=== PATIENT | female | born 1990 | race American Indian/Alaskan Native ===

== ENCOUNTER 2018-01-17 11:57 | Emergency (ER) | payer MEDICAID ==
[2018-01-17 12:18] VITALS: BP 125/60
[2018-01-17] MEDS ORDERED: ZOFRAN ODT PO ONE (15:00)
[2018-01-17] MEDS ORDERED: TYLENOL PO ONE (15:01)
[2018-01-17 15:20] LABS: Basophils % (Auto) 0.5 % (0.0-1.8); Eosinophils # (Auto) 0.1 K/mm3 (0.0-0.4); Eosinophils % (Auto) 1.1 % (0.0-4.3); Lymphocytes # (Auto) 1.4 K/mm3 (1.2-5.4); Lymphocytes % (Auto) 29.9 % (13.4-35.0); Monocytes # (Auto) 0.5 K/mm3 (0.0-0.8); Monocytes % (Auto) 10.2 % (0.0-7.3)
[2018-01-17 15:43] LABS: Bilirubin,Urine NEG (Negative); Blood,Urine NEG (Negative); Color,Urine Yellow (Yellow); Mucus,Urine 3+ /HPF; Urobilinogen,Urine < 2.0 mg/dL (<2.0)
[2018-01-17 15:45] LABS: WBC,Urine > 182.0 /HPF (0.0-6.0)
[2018-01-17 15:46] LABS: HCG Qualitative,Urine Positive (Negative)
[2018-01-17 15:49] LABS: Alanine Aminotransferase 6 units/L (7-56); Albumin 3.2 g/dL (3.9-5); BUN/Creatinine Ratio 8; Blood Urea Nitrogen 4 mg/dL (7-17); Calcium 8.4 mg/dL (8.4-10.2); Hemolysis Index 4; Lipase 16 units/L (13-60)
[2018-01-17] MEDS ORDERED: XYLOCAINE 1% MPF 5 mL INFILTRATI ONE (16:25)
[2018-01-17] MEDS ORDERED: ROCEPHIN IM STA (16:25)
--- NOTE | 2018-01-17 16:25 | Emergency Department Report ---
ED Abdominal Pain HPI - General Chief Complaint: Abdominal Pain Stated Complaint: ABDOMINAL PAIN Time Seen by Provider: 01/17/18 14:50 Source: patient, family Mode of arrival: Ambulatory Limitations: No Limitations - History of Present Illness Initial Comments: She reports abdominal pain 06/15 and it's located to her pelvic area. She reports that she has nausea with vomiting. This has been going on for 1 week. Denies any constipation or diarrhea. Denies any vaginal discharge. She reports irregular menses and said that she has irregular menses from time to time but the feeling is that she has now are the same feeling that she had when she was before. It is documented in triage note the patient said she was having irregular spotting the patient says that she did not say that she said that she was having irregular periods. Reports urinary burning but denies frequency or urgency. Vomited times one yesterday and she is able to tolerate liquids. Denies any fever or chills. No medication taken for pain. Patient does not have FUEL VERIFICATION TECHNICIAN. She reports some lower back pain. Denies any concern for STDs. Pain is crampy and it comes and goes nothing makes it better and nothing makes it worse. MD Complaint: abdominal pain Onset/Timin -: week(s) Location: suprapubic Radiation: none Migration to: no migration Severity: severe Severity scale (0 -10): 10 Quality: cramping Consistency: intermittent Improves With: nothing Worsens With: nothing Context: other (suspect ) Associated Symptoms: nausea, vomiting, dysuria. denies: diarrhea, fever, chills , constipation, hematemesis, hematochezia, melena, hematuria, anorexia, syncope Treatments Prior to Arrival: other (none) - Related Data LMP Date: 11/18/17 Previous Rx's Medication Instructions Recorded Last Taken Type Famotidine [Pepcid] 10 mg PO BID #60 tablet 12/24/13 Unknown Rx Omeprazole [PriLOSEC] 20 mg PO QDAY #30 capsule. 12/24/13 Unknown Rx Acetamin/Codeine 120-12Mg/5 ml 5 ml PO TID PRN #30 ml 11/09/14 Unknown Rx [Tylenol/Codeine] Cetirizine HCl [Allergy Relief] 10 mg PO DAILY #30 tablet 11/09/14 Unknown Rx Fluticasone Propionate [Flonase] 100 mcg NS QDAY #1 spray.susp 11/09/14 Unknown Rx Ibuprofen [Motrin] 800 mg PO Q8H PRN #60 tablet 11/09/14 Unknown Rx Famotidine [Pepcid] 20 mg PO BID #40 tablet 12/13/14 Unknown Rx Pnv with Ca,No.71/Iron/FA 1 each PO DAILY #90 tablet 12/13/14 Unknown Rx [ Vitamin Tablet] Promethazine [Phenergan] 25 mg PO Q6H PRN #20 tablet 12/13/14 Unknown Rx Acetaminophen/Codeine [Tylenol #3] 1 tab PO Q6H PRN #14 tab 01/12/15 Unknown Rx Ibuprofen [Motrin 800 MG tab] 800 mg PO TID PRN #30 tablet 07/27/15 Unknown Rx oxyCODONE /ACETAMINOPHEN [Percocet 1 tab PO Q4HR #30 tablet 07/27/15 Unknown Rx 5/325 mg] Cephalexin [Keflex] 500 mg PO Q8HR 7 Days #21 cap 01/17/18 Unknown Rx Metoclopramide [Reglan] 10 mg PO Q8H PRN #12 tab 01/17/18 Unknown Rx Vit No.130/Iron/Folic 1 each PO Q6H 30 Days #30 tablet 01/17/18 Unknown Rx [ Tablet] Allergies Allergy/AdvReac Type Severity Reaction Status Date / Time sulfamethoxazole Allergy Hives Verified 07/25/15 13:34 [From Bactrim] trimethoprim [From Bactrim] Allergy Hives Verified 07/25/15 13:34 ED Review of Systems ROS: Stated complaint: ABDOMINAL PAIN Other details as noted in HPI Constitutional: denies: chills, fever, weakness ENT: denies: throat pain, congestion Respiratory: denies: cough, orthopnea, shortness of breath, SOB with exertion, SOB at rest, stridor, wheezing Cardiovascular: denies: chest pain, palpitations, dyspnea on exertion, edema, syncope, paroxysmal nocturnal dyspnea Endocrine: denies: increased hunger, increased thirst, increased urine Gastrointestinal: abdominal pain, nausea, vomiting. denies: diarrhea, constipation, hematemesis, melena, hematochezia Genitourinary: dysuria, abnormal menses. denies: urgency, frequency, hematuria , discharge, dyspareunia Musculoskeletal: denies: back pain, joint swelling, arthralgia Skin: denies: rash, lesions Neurological: denies: headache, weakness, numbness, paresthesias, confusion, abnormal gait, vertigo ED Past Medical Hx - Past Medical History Previous Medical History?: Yes Hx Hypertension: No Hx Heart Attack/AMI: No Hx Congestive Heart Failure: No Hx Diabetes: No Hx Deep Vein Thrombosis: No Hx Renal Disease: No Hx Sickle Cell Disease: No Hx Headaches / Migraines: Yes Hx Seizures: No Hx Asthma: (mild intermittent) Hx COPD: No Hx HIV: No Additional medical history: BRONCHITIS - Surgical History Past Surgical History?: Yes Hx Cholecystectomy: Yes Additional Surgical History: A0 - Family History Family history: hypertension - Social History Smoking Status: Former Smoker Substance Use Type: Alcohol Other Social History: Single and lives with family - Medications Home Medications: Home Medications Medication Instructions Recorded Confirmed Last Taken Type Famotidine [Pepcid] 10 mg PO BID #60 tablet 12/24/13 07/28/15 Unknown Rx Omeprazole [PriLOSEC] 20 mg PO QDAY #30 capsule. 12/24/13 07/28/15 Unknown Rx Acetamin/Codeine 120-12Mg/5 ml 5 ml PO TID PRN #30 ml 11/09/14 07/28/15 Unknown Rx [Tylenol/Codeine] Cetirizine HCl [Allergy Relief] 10 mg PO DAILY #30 tablet 11/09/14 07/28/15 Unknown Rx Fluticasone Propionate [Flonase] 100 mcg NS QDAY #1 spray.susp 11/09/14 Unknown Rx Ibuprofen [Motrin] 800 mg PO Q8H PRN #60 tablet 11/09/14 07/28/15 Unknown Rx Famotidine [Pepcid] 20 mg PO BID #40 tablet 12/13/14 07/28/15 Unknown Rx Pnv with Ca,No.71/Iron/FA 1 each PO DAILY #90 tablet 12/13/14 07/28/15 Unknown Rx [ Vitamin Tablet] Promethazine [Phenergan] 25 mg PO Q6H PRN #20 tablet 12/13/14 07/28/15 Unknown Rx Acetaminophen/Codeine [Tylenol #3] 1 tab PO Q6H PRN #14 tab 01/12/15 07/28/15 Unknown Rx Ibuprofen [Motrin 800 MG tab] 800 mg PO TID PRN #30 tablet 07/27/15 Unknown Rx oxyCODONE /ACETAMINOPHEN [Percocet 1 tab PO Q4HR #30 tablet 07/27/15 Unknown Rx 5/325 mg] Cephalexin [Keflex] 500 mg PO Q8HR 7 Days #21 cap 01/17/18 Unknown Rx Metoclopramide [Reglan] 10 mg PO Q8H PRN #12 tab 01/17/18 Unknown Rx Vit No.130/Iron/Folic 1 each PO Q6H 30 Days #30 tablet 01/17/18 Unknown Rx [ Tablet] ED Physical Exam - General Limitations: No Limitations General appearance: alert, in no apparent distress - Head Head exam: Present: atraumatic, normocephalic, normal inspection - Eye Eye exam: Present: normal appearance, PERRL, EOMI Pupils: Present: normal accommodation - ENT ENT exam: Present: normal exam, normal orophraynx, mucous membranes moist, TM's normal bilaterally, normal external ear exam - Neck Neck exam: Present: normal inspection, full ROM, other (no C-spine tenderness). Absent: tenderness, lymphadenopathy - Respiratory Respiratory exam: Present: normal lung sounds bilaterally. Absent: respiratory distress, wheezes, rales, rhonchi, stridor, chest wall tenderness, accessory muscle use, decreased breath sounds, prolonged expiratory - Cardiovascular Cardiovascular Exam: Present: regular rate, normal rhythm, normal heart sounds. Absent: systolic murmur, diastolic murmur, rubs, gallop - GI/Abdominal GI/Abdominal exam: Present: soft, normal bowel sounds. Absent: distended, tenderness, guarding, rebound, rigid, organomegaly, mass, bruit, pulsatile mass , hernia - Extremities Exam Extremities exam: Present: normal inspection, full ROM, normal capillary refill , other (no clubbing, cyanosis or edema. +2 pulses full extremities). Absent: tenderness, pedal edema, joint swelling, calf tenderness - Back Exam Back exam: Present: normal inspection, full ROM, other (relates that any difficulties). Absent: tenderness, CVA tenderness (R), CVA tenderness (L), muscle spasm, paraspinal tenderness, vertebral tenderness, rash noted - Neurological Exam Neurological exam: Present: alert, oriented X3, reflexes normal. Absent: motor sensory deficit - Psychiatric Psychiatric exam: Present: normal affect, normal mood - Skin Skin exam: Present: warm, dry, intact, normal color. Absent: rash ED Course Vital Signs 01/17/18 12:14 Temperature 98.8 F Pulse Rate 65 Respiratory 20 Rate Blood Pressure 125/60 O2 Sat by Pulse 100 Oximetry - Reevaluation(s) Reevaluation #1: 01/17/18 16:[address] Boyle and appropriate orders placed. Patient received Tylenol 650 mg for abdominal pain. Patient reports that she was not having any vaginal spotting as reported on her triage paperwork she says she missed her period and she has a history of irregular period and she told them that she was having irregular. Not spotting. She said she came because she suspected that she was because this is the same thing that happened when she had her first child. She has a urinary tract infection and tolerated by mouth fluid well. Patient was given Zofran [address] Boyle. She is also given Rocephin 1 g IM for UTI. Urine culture sent. Abdomen is nontender to palpate. Patient and is saying that she is approximately 4 weeks based on her last period and I discussed with her that an ultrasound might because is still early. Patient does have FUEL VERIFICATION TECHNICIAN that she can follow- up with. Awaiting ultrasound and hormone Reevaluation #2: 01/17/18 18:51 Patient is stable, she is not experiencing any abdominal pain at present. Denies any nausea. Tolerating fluid well. Still awaiting in ultrasound ED Medical Decision Making - Lab Data Result diagrams: 01/17/18 15:04 01/17/18 15:04 Lab Results 01/17/18 01/17/18 01/17/18 Range/Units 15:04 15:04 15:10 WBC 4.8 (4.5-11.0) K/mm3 RBC 3.60 L (3.65-5.03) M/mm3 Hgb 10.3 (10.1-14.3) gm/dl Hct 30.2 L (30.3-42.9) % MCV 84 (79-97) fl MCH 29 (28-32) pg MCHC 34 (30-34) % RDW 17.0 H (13.2-15.2) % Plt Count 251 (140-440) K/mm3 Lymph % (Auto) 29.9 (13.4-35.0) % [place] % (Auto) 10.2 H (0.0-7.3) % Eos % (Auto) 1.1 (0.0-4.3) % Baso % (Auto) 0.5 (0.0-1.8) % Lymph # 1.4 (1.2-5.4) K/mm3 [place] # 0.5 (0.0-0.8) K/mm3 Eos # 0.1 (0.0-0.4) K/mm3 Baso # 0.0 (0.0-0.1) K/mm3 Seg Neutrophils % 58.3 (40.0-70.0) % Seg Neutrophils # 2.8 (1.8-7.7) K/mm3 Sodium 136 L (137-145) mmol/L Potassium 4.0 (3.6-5.0) mmol/L Chloride 100.1 (98-107) mmol/L Carbon Dioxide 24 (22-30) mmol/L Anion Gap 16 mmol/L BUN 4 L (7-17) mg/dL Creatinine 0.5 L (0.7-1.2) mg/dL Estimated GFR > 60 ml/min BUN/Creatinine Ratio 8 % Glucose 81 (65-100) mg/dL Calcium 8.4 (8.4-10.2) mg/dL Total Bilirubin 0.50 (0.1-1.2) mg/dL AST 10 (5-40) units/L ALT 6 L (7-56) units/L Alkaline Phosphatase 57 (35-129) units/L Total Protein 6.2 L (6.3-8.2) g/dL Albumin 3.2 L (3.9-5) g/dL Albumin/Globulin Ratio 1.1 % Lipase 16 (13-60) units/L Urine Color Yellow (Yellow) Urine Turbidity Hazy (Clear) Urine pH 5.0 (5.0-7.0) Ur Specific [place] 1.020 (1.003-1.030) Urine Protein 30 mg/dl (Negative) mg/dL Urine Glucose (UA) Neg (Negative) mg/dL Urine Ketones Neg (Negative) mg/dL Urine Blood Neg (Negative) Urine Nitrite Neg (Negative) Urine Bilirubin Neg (Negative) Urine Urobilinogen < 2.0 (<2.0) mg/dL Ur Leukocyte Esterase Lg (Negative) Urine WBC (Auto) > 182.0 H (0.0-6.0) /HPF Urine RBC (Auto) 11.0 (0.0-6.0) /HPF U Epithel Cells (Auto) 12.0 (0-13.0) /HPF Urine Mucus 3+ /HPF Urine HCG, Qual Positive A (Negative) Urine culture sent - Radiology Data Radiology results: report reviewed ON transvaginal/Transabdominal place pt at 8 weeks and 6 days hestation. Small subchorionic hemorrage. FHR 177 beats per minute. Both ovaries or normal and no adnexal masses identified. Estimated date of delivery is 08/23/2018. - Medical Decision Making ED course: Patient here complaining of pelvic pain that slid on off, nausea and vomiting the sit on and off 1 week. She reports irregular menses and denies any vaginal discharge or bleeding. CBC and chemistries stable and urinalysis SHOWS patient has urinary tract infection. Urine culture sent. Patient was given Zofran [address] Boyle. She WAS also given Rocephin 1 g IM for UTI. Urine culture sent. Abdomen is nontender to palpate. Patient and is saying that she is Ultrasound transabdominal abdominal OB and OB transvaginal place patient at 8 weeks 6 days with single live intrauterine . Small subchorionic hemorrhage. Both ovaries are normal. heart tone is 176 bpm. Please refer to laboratory section and also radiology section for details on reports. Lab report and ultrasound discussed the patient. I also discussed diagnosis of urinary tract infection, abdominal pain and , nausea and vomiting in and she voiced understanding. Patient discharged from ED to follow up with Dr. Tai Uribe in 2-3 days and if she cannot get and with Dr. Tai Uribe she can call [facility] OB clinic to schedule an appointment. She was understanding of diagnosis and discharge plan and discharged home with her family in stable condition with prescription for vitamin, Keflex and Reglan. Critical care attestation.: If time is entered above; I have spent that time in minutes in the direct care of this critically ill patient, excluding procedure time. ED Disposition Clinical Impression: Nausea and vomiting during UTI (urinary tract infection) during Qualifiers: Trimester: first trimester Qualified Code(s): O23.41 - Unspecified infection of urinary tract in , first trimester Abdominal pain during Qualifiers: Trimester: first trimester Qualified Code(s): O26.891 - Other specified related conditions, first trimester Qualifiers: Weeks of gestation: 8 weeks Qualified Code(s): Z3A.08 - 8 weeks gestation of Disposition: DC-01 TO HOME OR SELFCARE Is pt being admited?: No Does the pt Need Aspirin: No Condition: Stable Instructions: Vitamins (By mouth), (ED), Urinary Tract Infection in Women (ED), Acute Nausea and Vomiting (ED), Dysuria (ED), Abdominal Pain (ED) Additional Instructions: Please increase her fluid intake as instructed. Follow-up with Dr. Uribe who is FUEL VERIFICATION TECHNICIAN manager construction for today. See referral in discharge instruction paperwork. Take vitamin as instructed Take Keflex for urinary tract infection If you develop vaginal bleeding, discharge, nausea and vomiting that started relieved by medication, returning abdominal pain, please return to the emergency room [facility] otherwise follow-up with FUEL VERIFICATION TECHNICIAN. Call FUEL VERIFICATION TECHNICIAN tomorrow to schedule an appointment Prescriptions: Cephalexin [Keflex] 500 mg PO Q8HR 7 Days #21 cap Metoclopramide [Reglan] 10 mg PO Q8H PRN #12 tab PRN Reason: Nausea And Vomiting Vit No.130/Iron/Folic [ Tablet] 1 each PO Q6H 30 Days #30 tablet Referrals: ANA URIBE MD [Staff Physician] - 2-3 Days [facility] [Outside] - 2-3 Days Forms: Accompanied Note, Work/School Release Form(ED)
[2018-01-17 16:29] LABS: Hematocrit 30.2 % (30.3-42.9); Hemoglobin 10.3 gm/dl (10.1-14.3); Mean Corpuscular HGB Conc 34 % (30-34); Mean Corpuscular Hemoglobin 29 pg (28-32); Mean Corpuscular Volume 84 fl (79-97); Platelet Count 251 K/mm3 (140-440)
--- NOTE | 2018-01-17 18:52 | Ultrasound Report ---
FINAL REPORT EXAM: US OB TRANSVAGINAL HISTORY: with spotting TECHNIQUE: Ultrasound obstetrical transvaginal PRIORS: None. FINDINGS: There is gestational sac within the uterus There is pole present with crown-rump length of 2.18 centimeters corresponding to estimated gestational age of 8 weeks 6 days with estimated date of delivery August 23, 2018 cardiac activity is identified with heart rate 176 beats per minute There is a yolk sac noted. There is a hypoechoic focus adjacent to the gestational sac measuring 2.5 centimeters in length consistent with a small subchorionic hemorrhage. Uterus is 12.5 x 7.0 x 9.5 centimeters Right ovary is 3.7 x 2.1 x 3.2 centimeters left ovary is 1.7 x 1.3 x 2.2 centimeters No abnormal adnexal mass identified. IMPRESSION: Single live intrauterine gestation estimated at 8 weeks 6 days Small subchorionic hemorrhage
--- NOTE | 2018-01-17 18:54 | Ultrasound Report ---
FINAL REPORT EXAM: US OB < = 14 WEEKS FETUS HISTORY: with spotting TECHNIQUE: Ultrasound obstetrical transabdominal PRIORS: None. FINDINGS: There is gestational sac within the uterus There is pole present with crown-rump length of 2.18 centimeters corresponding to estimated gestational age of 8 weeks 6 days with estimated date of delivery August 23, 2018 cardiac activity is identified with heart rate 176 beats per minute There is a yolk sac noted. There is a hypoechoic focus adjacent to the gestational sac measuring 2.5 centimeters in length consistent with a small subchorionic hemorrhage. Uterus is 12.5 x 7.0 x 9.5 centimeters Right ovary is 3.7 x 2.1 x 3.2 centimeters left ovary is 1.7 x 1.3 x 2.2 centimeters No abnormal adnexal mass identified. IMPRESSION: Single live intrauterine gestation estimated at 8 weeks 6 days Small subchorionic hemorrhage
--- NOTE | 2018-01-17 22:08 | Emergency Department Report ---
Chief Complaint: Abdominal Pain Stated Complaint: ABDOMINAL PAIN Time Seen by Provider: 01/17/18 14:50 - HPI History of Present Illness: The patient is a 27 yo f presents for evaluation of abdominal pain. The patient was one week of abdominal pain epigastric in location, moderate in severity, crampy in quality, exacerbated with retching. She also reports associated nausea and multiple episodes of nonbilious, nonbloody emesis. She shares that her symptoms feel consistent with previous episode of . She is unsure if she is or not. The patient denies blunt trauma to the abdomen or pelvis, fever, chills, night sweats, diarrhea, blood in the stool, dark tarry stool, dysuria, hematuria, flank pain, genital discharge, inability to pass flatus. - Exam Vital Signs: Vital Signs 01/17/18 12:14 Temperature 98.8 F Pulse Rate 65 Respiratory 20 Rate Blood Pressure 125/60 O2 Sat by Pulse 100 Oximetry Physical Exam: General: well-nourished, well-developed, no acute distress Head: Normocephalic, atraumatic Eyes: normal sclera ENT: Mucous membranes are pink and moist Neck: trachea midline, neck supple, No neck stiffness, no cervical adenopathy Respiratory: Breath sounds equal bilaterally, no wheezing, rales, or rhonchi Cardio: S1 and S2 present, no murmurs, rubs, gallops, capillary refill is brisk Abdomen: Normoactive bowel sounds, soft abdomen, epigastric and superior tenderness to palpation is present Chest WALL/Back: No tenderness to palpation of the chest wall, no CVA tenderness with percussion Musc: No pitting edema Skin: No rash Neuro: no facial drooping, normal speech Psych: Normal affect MSE screening note: Focused history and physical exam performed. Due to findings the following was ordered: ED Medical Decision Making - Lab Data Result diagrams: 01/17/18 15:04 01/17/18 15:04 ED Disposition for MSE Clinical Impression: Nausea and vomiting during UTI (urinary tract infection) during Qualifiers: Trimester: first trimester Qualified Code(s): O23.41 - Unspecified infection of urinary tract in , first trimester Abdominal pain during Qualifiers: Trimester: first trimester Qualified Code(s): O26.891 - Other specified related conditions, first trimester Qualifiers: Weeks of gestation: 8 weeks Qualified Code(s): Z3A.08 - 8 weeks gestation of Disposition: DC-01 TO HOME OR SELFCARE Condition: Stable Instructions: Vitamins (By mouth), (ED), Urinary Tract Infection in Women (ED), Acute Nausea and Vomiting (ED), Dysuria (ED), Abdominal Pain (ED) Additional Instructions: Please increase her fluid intake as instructed. Follow-up with Dr. Uribe who is STAFF NURSE material liaison for today. See referral in discharge instruction paperwork. Take vitamin as instructed Take Keflex for urinary tract infection If you develop vaginal bleeding, discharge, nausea and vomiting that started relieved by medication, returning abdominal pain, please return to the emergency room [facility] otherwise follow-up with STAFF NURSE. Call STAFF NURSE tomorrow to schedule an appointment Prescriptions: Cephalexin [Keflex] 500 mg PO Q8HR 7 Days #21 cap Metoclopramide [Reglan] 10 mg PO Q8H PRN #12 tab PRN Reason: Nausea And Vomiting Vit No.130/Iron/Folic [ Tablet] 1 each PO Q6H 30 Days #30 tablet Referrals: [facility] [Outside] - 2-3 Days ANA URIBE MD [Staff Physician] - 2-3 Days Forms: Accompanied Note, Work/School Release Form(ED)
== END 2018-01-17 19:08 | disposition home or self-care (01) ==
LOC: ED 11:57
DX: O23.41 Unspecified infection of urinary tract in pregnancy, first trimester (principal); O21.9 Vomiting of pregnancy, unspecified; R11.0 Nausea; G43.909 Migraine, unspecified, not intractable, without status migrainosus; J45.909 Unspecified asthma, uncomplicated; Z87.891 Personal history of nicotine dependence; Z3A.08 8 weeks gestation of pregnancy; Z88.2 Allergy status to sulfonamides
CPT/HCPCS: 36415; 76801; 76817; 80053; 81001; 81025; 83690; 84702; 85025; 86850; 86900; 86901; 87086; 96372; 99284; J0696; Q0162